=== PATIENT | male | born 1985 | race Two or more races ===

== ENCOUNTER 2017-12-14 17:02 | Emergency (ER) | payer OTHER ==
[~2017-12-14] VITALS: Ht 175.3 cm; Wt 77.0 kg
[2017-12-14 22:00] VITALS: BP 119/81
== END 2017-12-14 22:00 | disposition home or self-care (01) ==
LOC: ER 17:02
DX: R07.89 Other chest pain (principal); F41.9 Anxiety disorder, unspecified; J45.909 Unspecified asthma, uncomplicated
CPT/HCPCS: 71045; 93005; 99284